=== PATIENT | female | born 1980 | race American Indian/Alaskan Native ===

== ENCOUNTER 2020-12-22 09:17 | Emergency (ER) | payer MEDICAID ==
[2020-12-22] MEDS ORDERED: TETRACAINE 0.5% OPHTH SOLN 4ML OU ONE (09:50)
[2020-12-22] MEDS ORDERED: FLUORESCEIN 1 MG STRIP OP ONE (09:50)
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
[2020-12-22] MEDS ORDERED: ERYTHROMYCIN 5 MG/1 GM OPHTH OINT OU SCH (10:00)
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
[2020-12-22 12:35] VITALS: BP 133/91
== END 2020-12-22 12:35 | disposition home or self-care (01) ==
LOC: ED 09:17
DX: S09.90XA Unspecified injury of head, initial encounter (principal); H11.32 Conjunctival hemorrhage, left eye; Z90.49 Acquired absence of other specified parts of digestive tract; Z79.899 Other long term (current) drug therapy; Y04.2XXA Assault by strike against or bumped into by another person, initial encounter; Y93.89 Activity, other specified; Y92.89 Other specified places as the place of occurrence of the external cause; Y99.8 Other external cause status
CPT/HCPCS: 70450; 70486; 72125; 99283